=== PATIENT | female | born 1955 | race Caucasian/White ===

== ENCOUNTER 2016-09-27 10:28 | Observation (INO) | payer MEDICARE, MEDICAID ==
[~2016-09-27 10:28] MED LIST: ACTOS45 MG PO; ALBAFORT325 ( 65 ) PO; ALPHA LIPOIC AC PO; ALPHA LIPOIC AC50 MG PO; ALPHA LIPOIC ACID PO; ALPRAZOLAM0.5 MG PO; ALPRAZOLAM1 M3 PO; AMARYL4 MG; AMBIEN5 M1 PO; AMLODIPINE BESY10 M1 PO; AMOXICILLIN500 M1 PO; AMOXICILLIN875 M1 PO; ASPIR-TRIN325 M2 PO; ASPIRIN325 M3 PO; AUGMENTIN 875-1 EAC2 PO; BACTRIM DS TAB1 EAC2 PO; CALCIUM + D T1 UDTAB PO; CALCIUM500 MG; CALCIUM600 M1 PO; CARBIDOPA-LE1 TAB.SA PO; CARBIDOPA-LEVO1 EA16 PO; CARBIDOPA-LEVO1 EAC9 PO; CELEXA20 M2 PO; CELEXA40 M2 PO; CELEXA40 MG PO; COLACE100 M1 PO; CPAP; CULTURELLE1 EAC1 PO; CYCLOBENZAPRINE5 M1; CYCLOBENZAPRINE5 M1 PO; DICYCLOMINE HCL20 M1 PO; DURAGESIC1 EAC5 TOP; ESCITALOPRAM OX20 M1 PO; FUROSEMIDE20 M1 PO; GABAPENTIN600 MG PO; GEMFIBROZIL600 MG; GLUCAGEN1 MG/1 ML IM; HUMALOG100 UNIT/1 SUBD; HUMALOG100 UNITS/ SC; HYOSCYAMINE PO; IRON PO; KEFLEX500 M4 PO; LANTUS100 UNITS/ SC; LASIX20 M1 PO; LECITHIN1200 M1 PO; LEVEMIR FL100 UNIT/2 SC; LEVEMIR100 UNITS/ SC; LEVOTHYROXINE25 MC3 PO; LISINOPRIL-HCT1 EAC1 PO; LISINOPRIL-HCTZ PO; LISINOPRIL40 M1 PO; LOPERAMIDE2 M2 PO; LOVENOX40 MG/0.1 SQ; MAGNESIUM OXID400 M1 PO; MAGNESIUM200 M1 PO; MAGNESIUM400 M1 PO; MILK OF MAGNESIA PO; MIRALAX17 G2 PO; MULTIVITAMIN1 TAB PO; MULTIVITAMINS1 EAC3 PO; NEURONTIN600 M1 PO; NORCO 5-325 TA1 EACH PO; NOVOLOG FL100 UNIT/2 SC; NUCYNTA50 M1 PO; OLANZAPINE PO; OLANZAPINE10 M1 PO; OMEPRAZOLE20 M3 PO; OMEPRAZOLE40 MG PO; PERCOCET 5-3251 EACH PO; POTASSIUM CHLO20 ME2 PO; PSYLLIUM HUSKS PO; ROXICODONE5 M2 PO; SENNA PLUS TAB1 EAC1 PO; SENOKOT-S TABL1 EACH PO; TRAMADOL HCL50 M2 PO; TRAMADOL HCL50 MG PO; TRILIPIX135 M1 PO; TRILIPIX135 MG PO; TYLENOL ARTHRI650 M1 PO; TYLENOL325 M2 PO; TYLENOL650 MG PO; ULTRAM ER100 M1; ULTRAM50 M1 PO; VITAMIN C PO; VITAMIN C1000 M1 PO; VITAMIN C500 M2 PO; VITAMIN D 22000 UNIT; VITAMIN D10000 UNIT PO; VITAMIN D2400 UNI1 PO; VITAMIN D250000 UNI1 PO; VITAMIN D5000 UNIT PO; VITAMIN E OIL-V52 M2 TP; XARELTO10 M1 PO; ZESTRIL40 M2 PO; ZYPREXA10 MG PO; [UNRECOGNIZED DRUG - REMARK] PO
[2016-09-27] MEDS ORDERED: SYNTHROID25 MC1 PO (10:35)
[2016-09-27] MEDS ORDERED: NOVOLOG FL100 UNIT/2 SC (10:59)
[2016-09-27] MEDS ORDERED: IRON PO (13:29)
[2016-09-27 13:37] LABS: BASO % 0.4 % (0-2); EOS % 2.6 % (0-7); EOSINOPHIL ABSOLUTE COUNT 0.2 tho/cmm (0.0-0.7); HCT-HEMATOCRIT 36.9 % (34.0-49.0); HGB-HEMOGLOBIN 11.7 gm/dl (12.0-15.5); IMMATURE GRANULOCYTES ABSOLUTE 0.02 tho/cmm (0-0.03); IMMATURE GRANULOCYTES PERCENT 0.3 % (0-0.3); LYMPH % 18.9 % (20-45); LYMPH ABSOLUTE COUNT 1.4 tho/cmm (0.8-4.5); MCHC MEAN CORPUSCULAR HGB CONC 31.7 % (32.0-36.0); MCV (MEAN CELL VOLUME) 88.3 fl (82.0-96.0); MEAN PLATELET VOLUME 11.3 cmc (9.4-12.4); MONO % 8.5 % (0-12); MONOCYTE ABSOLUTE COUNT 0.6 tho/cmm (0.0-1.2); NEUTROPHIL ABSOLUTE COUNT 5.1 tho/cmm (1.6-8.0); NEUTROPHIL-AUTOMATED 5.1 tho/cmm (1.6-8.0); NEUTROPHILS % 69.3 % (40-80); PLATELET COUNT 278 tho/cmm (150-450); RED BLOOD COUNT 4.18 mil/cmm (4.00-5.20); RED CELL DISTRIBUTION WIDTH 14.3 % (12.4-16.4); WHITE BLOOD COUNT 7.4 tho/cmm (4.0-10.0)
[2016-09-27 13:49] LABS: ALBUMIN 3.6 g/dl (3.5-5.0); ALKALINE PHOSPHATASE 52 U/L (33-138); ALT/SGPT 16 U/L (12-78); ANION GAP 12 mmol/L (0-20); AST/SGOT 20 U/L (10-40); BILIRUBIN,TOTAL 0.2 mg/dl (0-1.5); BLOOD UREA NITROGEN 41 mg/dl (6-24); CALCIUM 9.1 mg/dl (8.5-10.5); CARBON DIOXIDE-VENOUS 31 mmol/L (22-32); CHLORIDE 105 mmol/l (96-110); CREATININE 1.27 mg/dl (0.50-1.10); GLUCOSE 151 mg/dL (70-110); POTASSIUM 4.1 mmol/L (3.7-5.1); SODIUM 144 mmol/L (135-145); eGFR VALUE FOR BLACK 53 mL/Min
[2016-09-28] MEDS ORDERED: NORCO 5-325 TA1 EACH PO (15:30)
[2016-09-28] MEDS ORDERED: TYLENOL325 M2 PO (15:33)
[2016-10-11] MEDS ORDERED: CPAP ×2 (10:35→10:36)
== END 2016-09-28 16:03 ==
LOC: EDMED 10:28 → EMR2 16:59 → CAR1 18:40
PROVIDERS: Emergency Medicine; Internal Medicine; ADMIT Hospitalist
DX: S82.831A Other fracture of upper and lower end of right fibula, initial encounter for closed fracture (principal); R53.1 Weakness; E11.8 Type 2 diabetes mellitus with unspecified complications; I10 Essential (primary) hypertension; E66.01 Morbid (severe) obesity due to excess calories; W18.30XA Fall on same level, unspecified, initial encounter; Y93.B9 Activity, other involving muscle strengthening exercises; Y92.002 Bathroom of unspecified non-institutional (private) residence as the place of occurrence of the external cause; Z79.891 Long term (current) use of opiate analgesic; Z79.899 Other long term (current) drug therapy; Z88.2 Allergy status to sulfonamides; M81.0 Age-related osteoporosis without current pathological fracture; Z88.6 Allergy status to analgesic agent; Z88.1 Allergy status to other antibiotic agents; Z88.8 Allergy status to other drugs, medicaments and biological substances; Z98.890 Other specified postprocedural states; Z90.49 Acquired absence of other specified parts of digestive tract
CPT/HCPCS: G0378; G8978-GP-CK; G8979-GP-CJ; G8980-GP-CK; G8987-GO-CK; G8988-GO-CJ; G8989-GO-CK; J1815

== ENCOUNTER 2016-10-13 09:13 | Day surgery (SDC) | payer MEDICARE, MEDICAID ==
[~2016-10-13 09:13] MED LIST changes: +SYNTHROID25 MC1 PO
[2016-10-14 06:13] LABS: BASO % 0.2 % (0-2); EOS % 0.5 % (0-7); EOSINOPHIL ABSOLUTE COUNT 0.1 tho/cmm (0.0-0.7); HCT-HEMATOCRIT 34.6 % (34.0-49.0); HGB-HEMOGLOBIN 10.9 gm/dl (12.0-15.5); IMMATURE GRANULOCYTES ABSOLUTE 0.04 tho/cmm (0-0.03); IMMATURE GRANULOCYTES PERCENT 0.4 % (0-0.3); LYMPH % 13.8 % (20-45); LYMPH ABSOLUTE COUNT 1.3 tho/cmm (0.8-4.5); MCH (MEAN CORPUSCULAR HGB) 27.8 pg (28.0-32.0); MCHC MEAN CORPUSCULAR HGB CONC 31.5 % (32.0-36.0); MCV (MEAN CELL VOLUME) 88.3 fl (82.0-96.0); MEAN PLATELET VOLUME 11.6 cmc (9.4-12.4); MONO % 6.7 % (0-12); MONOCYTE ABSOLUTE COUNT 0.6 tho/cmm (0.0-1.2); NEUTROPHIL ABSOLUTE COUNT 7.4 tho/cmm (1.6-8.0); NEUTROPHIL-AUTOMATED 7.4 tho/cmm (1.6-8.0); NEUTROPHILS % 78.4 % (40-80); PLATELET COUNT 312 tho/cmm (150-450); RED BLOOD COUNT 3.92 mil/cmm (4.00-5.20); RED CELL DISTRIBUTION WIDTH 14.3 % (12.4-16.4); WHITE BLOOD COUNT 9.5 tho/cmm (4.0-10.0)
[2016-10-14 06:26] LABS: ANION GAP 14 mmol/L (0-20); BLOOD UREA NITROGEN 52 mg/dl (6-24); CALCIUM 8.9 mg/dl (8.5-10.5); CARBON DIOXIDE-VENOUS 28 mmol/L (22-32); CHLORIDE 100 mmol/l (96-110); CREATININE 1.45 mg/dl (0.50-1.10); GLUCOSE 217 mg/dL (70-110); SODIUM 137 mmol/L (135-145); eGFR VALUE FOR BLACK 45 mL/Min
[2016-10-14 06:29] LABS: POTASSIUM 4.5 mmol/L (3.7-5.1)
[2016-10-14] MEDS ORDERED: PERCOCET 5-3251 EACH PO (14:28)
[2016-10-14] MEDS ORDERED: OXYCONTIN20 M2 PO (14:29)
[2016-10-14] MEDS ORDERED: ASPIR 8181 M1 PO (14:30)
[2016-10-14] MEDS ORDERED: PHENERGAN12.5 M2 PO (14:35)
== END 2016-10-14 16:40 ==
LOC: SHSA 09:13 → ORE 12:21 → PACU 13:56 → 5EA 14:45
PROVIDERS: Internal Medicine
PROC: 0QSJ04Z Reposition Right Fibula with Internal Fixation Device, Open Approach (ICD-10-PCS; principal; 2016-10-13)
DX: S82.831A Other fracture of upper and lower end of right fibula, initial encounter for closed fracture (principal); E66.01 Morbid (severe) obesity due to excess calories; M19.90 Unspecified osteoarthritis, unspecified site; F41.9 Anxiety disorder, unspecified; F40.00 Agoraphobia, unspecified; G47.30 Sleep apnea, unspecified; K21.9 Gastro-esophageal reflux disease without esophagitis; I12.9 Hypertensive chronic kidney disease with stage 1 through stage 4 chronic kidney disease, or unspecified chronic kidney disease; E11.22 Type 2 diabetes mellitus with diabetic chronic kidney disease; N18.3 Chronic kidney disease, stage 3 (moderate); E11.42 Type 2 diabetes mellitus with diabetic polyneuropathy; R80.9 Proteinuria, unspecified; E78.5 Hyperlipidemia, unspecified; E03.9 Hypothyroidism, unspecified; Z79.4 Long term (current) use of insulin; Z79.899 Other long term (current) drug therapy; Z88.2 Allergy status to sulfonamides; Z88.5 Allergy status to narcotic agent; Z88.8 Allergy status to other drugs, medicaments and biological substances; Z91.048 Other nonmedicinal substance allergy status; Z87.11 Personal history of peptic ulcer disease; Z90.49 Acquired absence of other specified parts of digestive tract; Z90.710 Acquired absence of both cervix and uterus; Z90.89 Acquired absence of other organs; Z98.84 Bariatric surgery status; Z98.890 Other specified postprocedural states
CPT/HCPCS: C1713; G8978-GP-CJ; G8979-GP-CI; G8980-GP-CJ; J0171; J0690; J1815; J1885; J2250; J2270; J2795